=== PATIENT | female | born 1975 | race Caucasian/White ===

== ENCOUNTER 2016-12-01 23:44 | Inpatient (IN) ==
[2016-12-02] MEDS ORDERED: NS 2,000 ML ONE (00:39)
--- NOTE | 2016-12-02 00:43 | EKG Report ---
Test Performed on : 12/02/2016 00:37:03 AM Test Reason : BRADYCARDIA Blood Pressure : / mmHG Vent. Rate : 034 BPM Atrial Rate : 034 BPM P-R Int : 100 ms QRS Dur : 082 ms QT Int : 544 ms P-R-T Axes : 052 059 057 degrees QTc Int : 408 ms Marked sinus bradycardia. with short NM Abnormal ECG No previous ECGs available Unconfirmed Result
[2016-12-02] MEDS ORDERED: ZOFRAN ONE (00:48)
[2016-12-02] MEDS ORDERED: ZOFRAN IV ONE ×2 (00:52→01:17)
[2016-12-02] MEDS ORDERED: NS 1,000 ML IV ONE ×4 (00:53→13:50)
[2016-12-02 01:11] LABS: BASO% 0.1 % (0.0-0.8); EOS# 0.01 X1000 (0.0-0.7); EOS% 0.1 % (0.0-10.0); HEMATOCRIT 43.6 % (37.0-47.0); HEMOGLOBIN 15.4 g/dL (12.0-16.0); IMM GRAN# 0.03 X1000 (0.0-0.04); IMM GRAN% 0.2 % (0.0-0.5); LYMPH# 1.48 X1000 (1.2-3.4); LYMPH% 9.8 % (20.5-51.1); MANUAL DIFF NEEDED? YES; MCHC 35.3 g/dL (33-37); MCV 90.6 FL (81-99); MONO# 0.27 X1000 (0.11-0.59); MONO% 1.8 % (1.7-9.3); MPV 10.3 FL (7.4-10.4); PLT 260 X1000 (130-400); RBC 4.81 XMIL (4.2-5.4)
[2016-12-02 02:03] LABS: URINE CULTURE PL NEEDED? NO
[2016-12-02] MEDS ORDERED: MORPHINE IV ONE (02:03)
[2016-12-02] MEDS ORDERED: MORPHINE ONE (02:04)
[2016-12-02 02:07] LABS: BANDS 3 % (0-1); LYMPHS 8 % (21-51); MONO 1 % (1-9)
[2016-12-02] MEDS ORDERED: PHENERGAN IV ONE ×2 (02:10→03:55)
[2016-12-02] MEDS ORDERED: SODIUM CHLORIDE 0.9% INJ ONE ×2 (02:10→03:55)
[2016-12-02] MEDS ORDERED: PHENERGAN ONE (02:11)
[2016-12-02 02:21] LABS: BILIRUBIN URINE NEGATIVE (NEGATIVE); BLOOD URINE TRACE (NEGATIVE); CLARITY CLEAR (CLEAR); COLOR YELLOW; LEUKOCYTES URINE NEGATIVE (NEGATIVE); NITRITE URINE NEGATIVE (NEGATIVE); PROTEIN URINE NEGATIVE (NEGATIVE); UROBILINOGEN URINE NORMAL
[2016-12-02 02:23] LABS: UR AMPHETAMINES QUAL NONE DETECTED (NONE DETECT); UR BARBITUATES QUAL PRESUMPTIVE POSITIVE (NONE DETECT); UR BENZODIAZEPIN QUAL PRESUMPTIVE POSITIVE (NONE DETECT); UR CANNABINOIDS QUAL PRESUMPTIVE POSITIVE (NONE DETECT); UR COCAINE QUAL NONE DETECTED (NONE DETECT); UR MDMA QUAL NONE DETECTED (NONE DETECT); UR METHADONE QUAL NONE DETECTED (NONE DETECT); UR METHAMPHETAMINE QUAL NONE DETECTED (NONE DETECT); UR OPIATES QUAL PRESUMPTIVE POSITIVE (NONE DETECT); UR OXYCODONE QUAL NONE DETECTED (NONE DETECT); UR PCP QUAL NONE DETECTED (NONE DETECT); UR TCA QUAL NONE DETECTED (NONE DETECT)
[2016-12-02 02:29] LABS: AGAP 21; ALBUMIN 5.2 g/dL (3.5-5.0); ALKALINE PHOSPHATASE 89 U/L (32-104); BUN 7 mg/dL (8-22); CALCIUM 9.7 mg/dL (8.8-10.2); CHLORIDE 98 mmol/L (98-107); COSMO 283; GOT 17 U/L (10-30); GPT 19 U/L (10-36); POTASSIUM 3.8 mmol/L (3.5-5.1); SODIUM 141 mmol/L (136-145); TCO2 22 mmol/L (25-35); TOTAL PROTEIN 8.3 g/dL (6.3-8.3)
[2016-12-02 02:36] LABS: URINE EPITHELIAL CELLS <10 /HPF (<10); URINE RBC <10 /HPF (<10); URINE SOURCE CLEAN CATCH; URINE WBC <10 /HPF (<10)
[2016-12-02 02:40] LABS: AMYLASE 45 U/L (20-200); LIPASE 19 U/L (13-60)
[2016-12-02] MEDS ORDERED: TYLENOL PO ONE (06:01)
[2016-12-02] MEDS ORDERED: TYLENOL ONE (06:02)
[2016-12-02] MEDS ORDERED: SODIUM CHLORIDE 0.9% INJ PRN (06:23)
[2016-12-02] MEDS: ROCEPHIN 1 GM/NS 1 GM/50 ML IVPB IV SCH (08:19)
[2016-12-02] MEDS ORDERED: NS 1,000 ML ONE (12:42)
[2016-12-02] MEDS ORDERED: FIORICET PO PRN (14:29)
--- NOTE | 2016-12-02 14:29 | HISTORY AND PHYSICAL ---
CHIEF COMPLAINT: Nausea, vomiting, and diarrhea for 6 hours. HISTORY OF PRESENT ILLNESS: This is a 41-year-old female with a history of mitral valve prolapse and childhood seizures who presented to the emergency room complaining of 6 hours of nausea, vomiting, and diarrhea. She does complain as well of generalized weakness. She stated she woke up with nausea, vomiting and diarrhea started later in the day and it just increased in frequency and severity. She denies any known sick contacts. She has not been camping, had any unusual foods, and her last meal was Thursday night and she did eat the same thing family members ate with no reported symptoms from anyone else. On arrival to the emergency room she had a blood pressure of 170/78 with a heart rate of 34. She was given 2 L of saline along with Zofran and Phenergan. Vomiting did persist throughout the ER visit. She is being admitted for further evaluation and treatment. PAST MEDICAL HISTORY: 1. Mitral valve prolapse. 2. Palpitations. 3. Childhood seizures. PAST SURGICAL HISTORY: Hysterectomy. SOCIAL HISTORY: She denies alcohol, tobacco, or illicit drug use. 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 She does have one 14-year-old child. ALLERGIES: Penicillin which causes a rash. HOME MEDICATIONS: Zoloft daily. REVIEW OF SYSTEMS: A 14 point review of systems is discussed with patient with pertinent positives stated in HPI. She denied chest pain, presyncope, syncope, fever, chills, cough, any black or bloody vomitus, black or bloody stools. PHYSICAL EXAMINATION: GENERAL: This is a 41-year-old female, who is lying in a bed, in no distress. VITAL SIGNS: Blood pressure is 138/75, with a heart rate of 79, respirations are 18, temperature is 99.4 degrees, heart rate has predominantly been 37 to 53 since admission despite this pulse. HEENT: Head is normocephalic, atraumatic. Pupils equal, round, react to light. EOMs are intact. Sclerae anicteric. Mucous membranes are dry. NECK: Supple with trachea midline. CARDIOVASCULAR: Regular rate and rhythm. S1 and S2 appreciated. PULMONARY: Breath sounds are clear with no increased work of breathing noted. GASTROINTESTINAL: Abdomen is soft, nontender, nondistended with bowel sounds in all 4 quadrants. BACK: No CVAT. No spine tenderness. EXTREMITIES: No clubbing, cyanosis, or edema. Calves are nontender. Pulses are palpable x4. She does have poor turgor. NEUROLOGIC: Alert and oriented x3. DIAGNOSTICS: WBC is 15.1, with a hemoglobin of 15.4, hematocrit 43.6, and platelets of 260,000. Sodium is 141, potassium 3.8, BUN 7, creatinine 0.7, with a glucose of 164. Urinalysis is essentially negative. Urine drug screen is positive for opiates, barbiturates, benzodiazepines and cannabinoids. ASSESSMENT AND PLAN: This is a 41-year-old female with a reported history of mitral valve prolapse and palpitations who presented to the emergency room with nausea, vomiting and diarrhea and was found to be bradycardic. 1. Dehydration secondary to nausea, vomiting and diarrhea. We will continue with IV hydration, with IV antiemetics. 2. Bradycardia. The patient denies any prior history of bradycardia. She states that she has had palpitations although she was told that she was having premature ventricular contractions. We will continue with telemetry, continue hydration, and consult Cardiology. 3. Further treatments pending hospital course. Dictated by KAELA Vargas for Luciano Asencio MD cc: KAELA Vargas MD
--- NOTE | 2016-12-02 14:53 | CONSULTATION ---
DATE OF CONSULTATION: 12/02/2016 IMPRESSIONS: 1. Sinus bradycardia, probably vagally mediated. Asymptomatic. 2. Reported history of mitral valve prolapse. 3. Patient admitted with nausea, vomiting, and intravascular volume depletion. Sinus bradycardia manifest during extended period of nausea, vomiting, anorexia, abdominal distress. RECOMMENDATIONS: 1. Intravenous hydration, as you are doing. 2. Routine care from GI standpoint. Once patient is able to tolerate oral intake with liquids, it would be reasonable to allow her to go home. 3. No intervention needed for sinus bradycardia vagally mediated. 4. Ultimately, patient may benefit from followup echocardiography, but this could be done as an outpatient. HISTORY: This 41-year-old white female with reported history of mitral valve prolapse diagnosed more than 20 years ago was admitted to the emergency room last night with nausea and vomiting after extended period of abdominal discomfort and anorexia yesterday. She was noted to have some sinus bradycardia while in the emergency room being treated and was subsequently admitted. Patient relates that yesterday, all day, she was unable to eat, and felt anorexia and some nausea. Yesterday evening, she started to have nausea and vomiting as well as some diarrhea. This was protracted despite [id number] remedies. She came to the emergency room and was given antiemetics and intravenous fluids. While there, she was noted to have sinus bradycardia into the 30-40 beat per minute range. She was subsequently admitted. She had no presyncope or syncope. She is generally physically active playing softball vigorously. There is no history of chest pain. She has had some palpitations in the past and had evaluation with echocardiography years ago, which reportedly demonstrated mitral valve prolapse, as well as ambulatory ECG monitoring, which was reportedly benign. She has not had Cardiology followup in 10 years. PAST MEDICAL HISTORY: 1. Reported history of mitral valve prolapse. 2. Status post hysterectomy. CURRENT MEDICATIONS: As listed. SOCIAL HISTORY: She is . She does not smoke or use alcohol. She is active physically and plays softball. FAMILY HISTORY: Negative for premature coronary artery disease. REVIEW OF SYSTEMS: Pulmonary: Negative. Gastrointestinal: Noteworthy for nausea, vomiting, and diarrhea as well as anorexia, as noted in history of present illness. Constitutional: Negative for fever. The remainder of the review of systems negative/noncontributory, with 14 total systems reviewed. PHYSICAL EXAMINATION: General: This is a pleasant adult female in no distress. Vital Signs: As recorded and are stable. HEENT: Extraocular movements intact. Mucous membranes moist. Neck: Supple. No jugular venous distention. There are no carotid bruits. Chest: Clear to auscultation. Cardiac: Regular rate and rhythm, without appreciable murmur or gallop. Abdomen: Soft, nontender. Bowel sounds are normal. Extremities: Without edema. Neurologic: Reveals her to be alert and fully oriented. Speech is fluent. Moves all 4 extremities equally well. Skin: Warm and dry. Psychiatric: Reveals mood to be appropriate. ELECTROCARDIOGRAM: ECG demonstrates sinus bradycardia. cc: Mk Roblero MD
[2016-12-02] MEDS: PHENERGAN IV PRN ×2 (15:53→22:33)
[2016-12-03 07:29] LABS: AGAP 15; ALBUMIN 4.1 g/dL (3.5-5.0); ALKALINE PHOSPHATASE 67 U/L (32-104); BUN 4 mg/dL (8-22); CALCIUM 8.7 mg/dL (8.8-10.2); CHLORIDE 100 mmol/L (98-107); COSMO 272; GOT 18 U/L (10-30); GPT 16 U/L (10-36); MAGNESIUM 1.8 mg/dL (1.5-2.7); POTASSIUM 3.3 mmol/L (3.5-5.1); SODIUM 138 mmol/L (136-145); TCO2 23 mmol/L (25-35); TOTAL PROTEIN 6.8 g/dL (6.3-8.3)
[2016-12-03] MEDS ORDERED: KLOR-CON PO ONE (07:53)
[2016-12-03 08:12] LABS: HEMATOCRIT 40.7 % (37.0-47.0); HEMOGLOBIN 14.1 g/dL (12.0-16.0); MCH 31.7 PG (27-31); MCHC 34.6 g/dL (33-37); MCV 91.5 FL (81-99); MPV 10.3 FL (7.4-10.4); RBC 4.45 XMIL (4.2-5.4)
[2016-12-03] MEDS: ROCEPHIN 1 GM/NS 1 GM/50 ML IVPB IV SCH (09:24)
[2016-12-03] MEDS: NS 1,000 ML IV SCH ×2 (09:25→11:24)
[2016-12-03] MEDS: PHENERGAN IV PRN (10:06)
[2016-12-03] MEDS ORDERED: ZOLOFT PO SCH (10:45)
--- NOTE | 2016-12-03 14:12 | Diag Imaging Result Doc PS360 ---
US ABDOMEN-COMPLETE - 12/03/2016 INDICATION: n/v COMPARISON: None FINDINGS: The patient is not nothing by mouth. The gallbladder is collapsed and indeterminate. The liver, pancreas, spleen, and both kidneys are normal. Common bile duct measures 3 mm. Aorta, IVC, and main portal vein are patent. IMPRESSION: Improper exam. The patient is not nothing by mouth. The gallbladder is collapsed and indeterminate. Exam is otherwise normal. Electronically signed by Joel Ling 12/03/2016 2:10 PM
--- NOTE | 2016-12-03 14:52 | ECHO REPORT ---
ORDER DATE: 12/02/2016 INDICATION: Is bradycardia and mitral valve prolapse. FINDINGS: 1. Right atrium is normal in size. 2. Mild tricuspid regurgitation. RV systolic pressure of 49. 3. Normal RV size and systolic function. 4. Trace pulmonic insufficiency. 5. Normal left atrial size at 3.9 cm. 6. No mitral prolapse. Mild mitral regurgitation. 7. Normal LV size, end-diastolic dimension of 4.1. Normal wall thicknesses with a posterior and interventricular septal thickness 0.7 cm each. Normal LV systolic function. The estimated EF is 60% with normal wall motion. 8. Aortic valve opens well. No evidence of stenosis or insufficiency. 9. Aorta appears normal in visualized segments. 10. No pericardial effusion seen. cc: MD Fide Reza CRNP
[2016-12-03 16:32] VITALS: BP 158/64
--- NOTE | 2016-12-04 11:20 | DISCHARGE SUMMARY ---
ADMISSION DATE: 12/02/2016 DISCHARGE DATE: 12/03/2016 DIAGNOSES: 1. Nausea and vomiting. 2. Dehydration secondary to nausea, vomiting, and diarrhea. 3. Bradycardia. 4. Hypokalemia. DIAGNOSTICS: 12/03/2016, abdominal ultrasound: The patient has nothing by mouth. The gallbladder is collapsed and indeterminate. The liver, pancreas, spleen, and both kidneys are normal. Common bile duct measures 3 mm. Aorta, IVC, and main portal vein are patent. HOSPITAL COURSE: Ms. Christensen presented to the emergency room complaining of nausea, vomiting, and diarrhea for 6 hours as well as generalized weakness. On arrival, she was bradycardic with a heart rate in 34. As she was hydrated, this did increase to the mid 40s to 50s. She was asymptomatic with this. She was seen by Cardiology, who felt that her bradycardia was vagally mediated and that we should continue IV hydration. Heart rates did slowly increase. This morning, her heart rate was has been 55-60. She has denied nausea. She did complain of a migraine headache. She has been up, walking in the greg[place] and denied any dizziness or syncope. Heart rates did stay in the 55-60 range. She had a white count of 15. Her temperature did peak at 100.4 degrees, although it has been 98 degrees since. She did receive IV antibiotic body coverage of Rocephin prophylactically. Her diet was advanced to a GI soft, and she did eat 100% of this meal last night as well as this morning. DISCHARGE PHYSICAL EXAMINATION: Cardiovascular: Regular rate and rhythm. S1 and S2 appreciated. Pulmonary: Breath sounds are clear. No increased work of breathing noted. Gastrointestinal: Abdomen is soft, nontender, and nondistended, with bowel sounds in all 4 quadrants. Extremities: No clubbing, cyanosis, or edema. Calves are nontender. Pulses are palpable x4. Vital Signs: Blood pressure is 159/78 with a heart rate of 58. Respirations are 18. Temperature is 98.9 degrees with room air saturations of 98% to 100%. DISCHARGE DIET: GI soft. DISCHARGE ACTIVITY: As tolerated. DISCHARGE MEDICATIONS: She is to continue her Zoloft 100 mg p.o. daily. She will be given a prescription for Phenergan 25 mg p.o. q.6 hours p.r.n., #25 with no refills. FOLLOWUP: She needs to follow up with Dr. Ogden for further evaluation. She will most likely need an EGD. DISPOSITION: She is being discharged home in stable condition with family members. Dictated by KAELA Vargas for Luciano Asencio MD cc: KAELA Vargas MD
--- NOTE | 2016-12-22 20:28 | PROVIDER DOCUMENTATION ---
This chart was entered by Amelie Estes Scribe, acting as scribe for Yaron Urbano MD. HPI-Abdominal Pain/GI Problem - General Chief Complaint: N/V/D Stated Complaint: VOMITING Time Seen by Provider: 12/02/16 00:53 Source: patient Allergies/Adverse Reactions: Patient Allergies Allergy/AdvReac Type Severity Reaction Status Date / Time Penicillins Allergy RASH Verified 12/02/16 00:12 Home Medications: Home Medication List Medication Instructions Recorded Confirmed Last Taken Type Sertraline HCl [Zoloft] 1 tab PO DAILY 12/02/16 12/02/16 12/02/16 History Promethazine [Phenergan] 25 mg PO Q6H PRN PRN #30 tablet 12/03/16 Unknown Rx Sertraline [Zoloft] 100 mg PO DAILY tablet 12/03/16 Unknown Rx - History of Present Illness-ABD Nature of Presenting Problems: 41 Y/O F presents to ED with ABD pain. Pt states N/V/D states she went out to eat after [employer] and began having N/V/D. Pt is weak and lethargic on arrival. Abdominal Pain Onset Location: reports: generalized abdomen Pain Radiation: reports: no radiation Quality of Pain: reports: aching Severity in ED: reports: severe Onset/Duration: reports: this evening Timing: reports: still present Activities at Onset: reports: none Associated Symptoms: reports: diarrhea, nausea, vomiting, weakness. denies: constipation Review of Systems - Adult - REVIEW OF SYSTEMS - ADULT Constitutional: denies: chills, fever Eyes: reports: no symptoms reported Ears, Nose, Mouth & Throat: reports: no symptoms reported Cardiovascular: reports: no symptoms reported Respiratory: denies: cough Gastrointestinal: reports: abdominal pain, diarrhea, nausea, vomiting Genitourinary: reports: no symptoms reported Musculoskeletal: reports: no symptoms reported Integumentary: reports: no symptoms reported Neurological: reports: no symptoms reported Psychiatric: reports: no symptoms reported Endocrine: reports: no symptoms reported Hematologic/Lymphatic: reports: no symptoms reported Allergic/Immunologic: reports: no symptoms reported All Other Systems: Reviewed and Negative Past History - Adult - PAST MEDICAL HISTORY-ADULT Review of Records: reports: Old Records Reviewed, Nursing Assessment Review, Medications Reviewed, Social history reviewed & non-contributory. Physical Exam-General - CONSTITUTIONAL General Appearance: alert, moderate distress, lethargic - EYES Eyes: pale conjunctivae - HEAD, EARS, NOSE, MOUTH & THROAT HENMT: moist mucous membranes, normal ENT inspection, TMs normal - NECK Neck: full range of motion, supple - CARDIOVASCULAR Cardiovascular: bradycardia - GASTROINTESTINAL (ABDOMEN) Abdominal Exam: tenderness - LYMPHATIC Lymphatic: no adenopathy - MUSCULOSKELETAL Extremity: normal range of motion, non-tender - SKIN Integumentary: negative: normal color (pale) - PSYCHIATRIC Psych/Mental Status: oriented x 3 Progress - PLAN OF CARE/RESULTS Progress/Plan/Lab Results: Vital Signs - 8 hr 12/02/16 00:15 Temperature 97.8 F Pulse Rate 34 L Respiratory Rate 16 Blood Pressure 170/78 O2 Sat by Pulse Oximetry 100 Orders Category Date Time Status 0.9% Sodium Chloride Inj [Ns] 1,000 ml Med 12/02/16 00:39 Discontinued .ROUTE As Directed Ondansetron [Zofran] Med 12/02/16 00:48 Discontinued 4 mg .ROUTE .STK-MED ONE Ondansetron [Zofran] Med 12/02/16 00:52 Discontinued 4 mg IV NOW ONE EKG [EKG] Stat Ther 12/02/16 00:30 Draft Result Diagrams: 12/03/16 06:20 12/03/16 06:20 Departure - Departure Date of Disposition Decision: 12/02/16 Time of Disposition Decision: 01:11 DIAGNOSIS: Sinus bradycardia, Gastroenteritis Disposition: ADMITTED INPATIENT 09 Certified Medical Emergency: Emergent Condition: Stable - Critical Care Note This patient required my direct & personal management of CC.: No This chart was documented by the indicated scribe, (Amelie Estes Scribe) and accurately reflects the services I performed and decisions made by me, Yaron Urbano MD, as attested by the provider's signature.
== END 2016-12-03 16:39 | disposition home or self-care (01) ==
LOC: P.MEDSURG 23:44 → P.ED 23:44 → SUATTDRO 12-02 06:06 → OBSVTOIN 12-02 06:06
PROVIDERS: ATTEND Family Medicine